=== PATIENT | male | born 1970 | race Caucasian/White ===

== ENCOUNTER 2022-04-09 09:29 | Emergency (ER) | payer OTHER ==
[2022-04-09 09:54] VITALS: BP 126/65; PULSE 76; TEMP 98.4; BMI 33.7
[2022-04-09] MEDS ORDERED: METHOCARBAMOL 500 MG TABLET PO ONE (10:19)
[2022-04-09] MEDS ORDERED: KETOROLAC TROMETHAMINE 60 MG/2 ML VIAL IM ONE (10:19)
[2022-04-09] MEDS ORDERED: METHOCARBAMOL 500 MG TABLET ONE (10:23)
[2022-04-09] MEDS ORDERED: KETOROLAC TROMETHAMINE 60 MG/2 ML VIAL ONE (10:24)
== END 2022-04-09 12:57 | disposition home or self-care (01) ==
LOC: JERFT 09:29
PROC: 3E023GC Introduction of Other Therapeutic Substance into Muscle, Percutaneous Approach (ICD-10-PCS; principal; 2022-04-09)
DX: M25.512 Pain in left shoulder (principal); R25.2 Cramp and spasm
CPT/HCPCS: 99284-25